=== PATIENT | male | born 1955 ===

== ENCOUNTER 2024-05-12 07:08 | Inpatient (IN) | payer OTHER, MEDICARE, SELFPAY ==
[2024-04-17 12:36] VITALS: BMI 29.8
[2024-04-17 14:26] LABS: Hematocrit 43.3 % (39.0-52.0); Hemoglobin 15.2 g/dL (13.0-18.0); Mean Corp Hgb Conc. 35.1 g/dL (33.0-37.0); Mean Corpuscular Hgb 29.3 pg (27.0-31.0); Mean Corpuscular Volume 83.4 fL (80.0-94.0); Mean Platelet Volume 9.8 fL (7.4-10.4); Platelet Count 198 10^3/uL (130-400); Red Blood Cell Count 5.19 10^6/uL (4.70-6.10); Red Cell Dist. Width 11.9 % (11.5-14.5); White Blood Cell Count 6.4 10^3/uL (4.8-10.8)
[2024-04-17 14:45] LABS: ALT (SGPT) 20 U/L (0-50); AST (SGOT) 28 U/L (17-59); Albumin 4.4 g/dl (3.5-5.0); Alkaline Phosphatase 61 U/L (38-126); Blood Urea Nitrogen 13 mg/dl (9-20); Calcium 9.5 mg/dl (8.4-10.2); Carbon Dioxide 27 mmol/L (22-30); Chloride 101 mmol/L (98-107); Estimated Creatinine Clearance 86 ml/min; Glucose 74 mg/dl (70-99); Potassium 4.3 mmol/L (3.5-5.1); Sodium 143 mmol/L (135-145); Total Bilirubin 0.5 mg/dl (0.2-1.3); Total Protein 7.2 g/dl (6.3-8.2); eGFR > 60.00
[2024-04-18 10:06] LABS: Glycohemoglobin (HgbA1c) 5.4 % (4.0-5.6)
--- NOTE | 2024-04-28 10:40 | VNURNOTE ---
Patient is scheduled for an elective R TKA on 05/12/24- he is a same day patient with Dr Valdez. Spoke with patient prior to surgery. Introduced role of [facility] Liaison. Patient reports that he lives with his in a split level home.
There are 2 steps to enter. There are 5 steps to a landing and 8 steps to the second floor.
There is a powder room on the entry engineer. He currently functions independently. He has a rolling walker and will obtain a cane.
PCP is Dr Jan Eric.
Discussed [facility] joint protocol and post surgical plans. Patient mentioned there is a possibility he may stay overnight.
Reviewed that if patient DC's same day, he will have VN services initially and will then start outpatient PT.
Patient selects VN for his home care needs and will go to [facility] for outpatient PT. Scheduled for 05/19.
Patient is in agreement with plan and states that his and daughter will be home with him. Advised to bring RW with him day of surgery. Referral placed in [facility].
Plan: [facility] per [facility] joint protocol then outpt PT on 05/19
[2024-05-06 10:57] VITALS: BMI 29.8
[2024-05-12] VITALS (14 sets, daily range): BP systolic 99–173; BP diastolic 60–89; PULSE 74; O2SAT 96–99
[2024-05-12] MEDS: TYLENOL 650 MG PO ×4 (07:34→23:31)
[2024-05-12] MEDS: CELEBREX 200 MG PO (07:34)
[2024-05-12] MEDS: ROXICODONE 5 MG PO ×2 (12:39→20:40)
[2024-05-12] MEDS: TYLENOL PO (12:51)
[2024-05-12] MEDS: COZAAR PO (13:10)
[2024-05-12] MEDS: NORMOSOL-R/PLASMALYTE-A 1000 IV (13:15)
--- NOTE | 2024-05-12 13:29 | PTCARENOTE ---
Patient received from PACU in bed; Right knee primaseal with scant amount of drainage present; Patient reports mild loss of sensation to bilateral lower extremities; Bilateral pedal pulses +2 to palpation; Patient is presently able to wiggle toes;
Patient states pain is mild but tolerable; Patient denies nausea/vomiting at this time; Patient oriented to room and unit; Call long within reach; Bed in lowest position, wheels locked; Assessment ongoing
[2024-05-12] MEDS: PROTONIX 40 MG PO (13:36)
[2024-05-12] MEDS: LIPITOR 10 MG PO (13:36)
[2024-05-12] MEDS: VITAMIN D3 (cholecalciferol) 50 MCG PO (13:36)
--- NOTE | 2024-05-12 14:15 | W.PN.UPDATE ---
Update Note
Progress Note Update
Went to evaluate patient in his room; however, he was working w/ OT at the time.
R knee OA s/p R TKA w/ Dr Valdez 05/12/24
DVT prophylaxis - ASA, b/l venous foot pumps
HTN - + parameters - monitor BP
AAA (small), stable on serial imaging
PVD w/ LLE claudication
- Continue ASA but at 325 mg daily dosing x4 weeks for blood clot prevention
GERD - continue PPI therapy
HLD
History of tobacco abuse
[2024-05-12] MEDS: ANCEF 5 IV (17:02)
[2024-05-12] MEDS: ASPIRIN 325 MG PO (17:02)
[2024-05-12] MEDS: DECADRON 4 MG PO (20:41)
[2024-05-12] MEDS: COLACE 100 MG PO (20:41)
[2024-05-12] MEDS: SENOKOT 17.2 MG PO (20:42)
[2024-05-12] MEDS: BACTROBAN 2% OINTMENT 1 APPLIC NASAL (21:32)
[2024-05-13] MEDS: ANCEF 5 IV (02:43)
[2024-05-13 03:00] VITALS: BP 139/77
[2024-05-13] MEDS: TYLENOL 650 MG PO ×3 (03:02→11:32)
[2024-05-13] MEDS: ROXICODONE 10 MG PO ×2 (06:01→10:05)
[2024-05-13] MEDS: CELEBREX 200 MG PO (07:25)
[2024-05-13] MEDS: DECADRON 4 MG PO (07:26)
[2024-05-13] MEDS: LIPITOR 10 MG PO (07:26)
[2024-05-13] MEDS: PROTONIX 40 MG PO (07:26)
[2024-05-13] MEDS: COLACE 100 MG PO (07:26)
[2024-05-13] MEDS: VITAMIN D3 (cholecalciferol) 50 MCG PO (07:26)
[2024-05-13] MEDS: COZAAR 25 MG PO (07:26)
[2024-05-13] MEDS: BACTROBAN 2% OINTMENT 1 APPLIC NASAL (07:26)
[2024-05-13] MEDS: ASPIRIN 325 MG PO (07:26)
[2024-05-13] MEDS: SENOKOT 17.2 MG PO (07:26)
[2024-05-13 07:30] VITALS: BP 149/90
--- NOTE | 2024-05-13 08:46 | W.PN.ORTHO ---
Today's Communication / Plan
-
Await PT and OT recs.
D/c later today if remaining clinically stable.
Assessment
.
Distal Motor Intact: Yes
Dressing:
Scant areas of old bleeding along incision line.
Assessment:
R knee OA s/p R TKA w/ Dr Valdez 05/12/24
DVT prophylaxis - ASA, b/l venous foot pumps
HTN - + parameters - BPs overall stable
AAA (small), stable on serial imaging
PVD w/ LLE claudication
- Continue ASA but at 325 mg daily dosing x4 weeks for blood clot prevention
GERD - continue PPI therapy
HLD
History of tobacco abuse
Plan
.
Surgery / Date: R TKA w/ Dr Valdez 05/12/24
DVT Prophylaxis: Aspirin
Activity:
Out of bed.
PT/OT
Discharge Plan: Home w/ Outpatient PT
Subjective
.
.:
Patient resting comfortably in his chair.
R knee pain overall well tolerated w/ current pain meds.
Denies any new significant complaints.
Eager for potential d/c today.
Vital Signs and Labs
.
Vital Signs and Labs:
Lab Results
04/17/24 12:20
04/17/24 12:20
Temp Pulse Resp BP Pulse Ox
97.9 F 94 18 149/90 96
05/13/24 07:30 05/13/24 07:30 05/13/24 07:30 05/13/24 07:30 05/13/24 07:30
Non-invasive Hgb result: 13.8
Physical Exam
-
HEENT: No pallor, cyanosis, or jaundice. Throat clear.
NECK: Supple. No JVD.
RESPIRATORY: Lungs clear to auscultation.
CVS: S1, S2 normal. RRR.�
ABDOMEN: Soft, non-tender. No distension.
EXTREMITIES: Strength equal, no calf pain with palpation/dorsiflexion. Calves soft.
TRIM INSTALLER: AOx3. No focal deficits. feller operator grossly intact
--- NOTE | 2024-05-13 09:00 | W.DS.TRANS ---
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
-
Discharge Instructions:
Sleep Apnea Risk Intermediate
Discharge Diagnosis/Procedures R knee OA s/p R TKA w/ Dr Valdez 05/12/24
Diet Regular
Activity As tolerated,With Walker
Driving Restrictions Not until seen by your Dr
Bathing Restrictions OK to Shower
Other Services PT
Wound Care Dressing to be removed 1 week post-surgery.
Instructions:
Stand-Alone Forms: Total Hip/Knee Replacement D/C
Changes to Home Medications: Yes
Discharge Medications:
DC Medications w/original date entered in [employer]
ascorbic acid (vitamin C) 500 mg chewable tablet (Vitamin C) 500 mg PO DAILY Supplement 05/06/24
cholecalciferol (vitamin D3) 50 mcg (2,000 unit) tablet (Vitamin D3) 50 mcg PO DAILY Supplement 05/06/24
omeprazole 40 mg capsule,delayed release 40 mg PO DAILY Gastrointestinal Issue 05/06/24
pitavastatin calcium 2 mg tablet 2 mg PO DAILY High Cholesterol 05/06/24
mupirocin 2 % topical ointment 1 applic topical BID 05/12/24
acetaminophen 325 mg tablet 650 mg (2 x 325 mg) PO Q4HWA #60 tabs 05/13/24
aspirin 325 mg tablet 325 mg PO DAILY #30 tabs 05/13/24
celecoxib 100 mg capsule (Celebrex) 100 mg PO BID #30 caps 05/13/24
dexamethasone 4 mg tablet 4 mg PO Q12H Anti-inflammatory #7 tabs 05/13/24
docusate sodium 100 mg capsule 100 mg PO BID #30 caps 05/13/24
losartan 25 mg tablet 25 mg PO DAILY Blood Pressure #1 tab 05/13/24
ondansetron HCl 4 mg tablet 4 mg PO Q6H PRN nausea and vomiting #30 tabs 05/13/24
oxycodone 5 mg tablet 5 - 10 mg (1 - 2 x 5 mg) PO Q6H PRN moderate-severe pain #30 tabs 05/13/24
sennosides 8.6 mg tablet (Senna Laxative) 17.2 mg (2 x 8.6 mg) PO BID #30 tabs 05/13/24
Home Medication Changes
acetaminophen 325 mg tablet 650 mg (2 x 325 mg) PO Q4HWA #60 tabs 05/13/24
aspirin 325 mg tablet 325 mg PO DAILY #30 tabs 05/13/24
celecoxib 100 mg capsule (Celebrex) 100 mg PO BID #30 caps 05/13/24
dexamethasone 4 mg tablet 4 mg PO Q12H Anti-inflammatory #7 tabs 05/13/24
docusate sodium 100 mg capsule 100 mg PO BID #30 caps 05/13/24
ondansetron HCl 4 mg tablet 4 mg PO Q6H PRN nausea and vomiting #30 tabs 05/13/24
oxycodone 5 mg tablet 5 - 10 mg (1 - 2 x 5 mg) PO Q6H PRN moderate-severe pain #30 tabs 05/13/24
sennosides 8.6 mg tablet (Senna Laxative) 17.2 mg (2 x 8.6 mg) PO BID #30 tabs 05/13/24
Pending Results: No
--- NOTE | 2024-05-13 09:52 | CM ---
Reviewed the chart notes and spoke with the patient's daughter at the bedside while OT was working with the patient. The patient resides with his spouse in a split level home with two steps to enter. The patient has a cane and rolling walker in
the home. The patient has not had VN or been to a SNF. The patient did confirmed his pharmacy of choice is the [facility] [address] [facility]. The patient has outpatient PT/OT scheduled for tomorrow. The patient's daughter will
provide transportation home today. Spouse will provide transportation to and from outpatient PT. CM continues to be available to patient/family and is monitoring medical plan for needs at discharge.
Plan: Discharge to home today. No additional needs identified.
[2024-05-13 09:54] VITALS: BP 128/73; PULSE 86; O2SAT 95
[2024-05-13 10:45] VITALS: BP 144/76
[2024-05-13 11:35] VITALS: BP 142/82; PULSE 80; O2SAT 96
== END 2024-05-13 12:17 | disposition home or self-care (01) | DRG 470 ==
LOC: 2 SOUTH 07:08
PROVIDERS: ADMITTING PHYSICIAN Specialist; FAMILY PHYSICIAN Family Medicine; REFERRING PHYSICIAN Internal Medicine Interventional Cardiology
PROC: 0SRC0J9 Replacement of Right Knee Joint with Synthetic Substitute, Cemented, Open Approach (ICD-10-PCS; 2024-05-12)
DX: M17.11 Unilateral primary osteoarthritis, right knee (principal); I71.40 Abdominal aortic aneurysm, without rupture, unspecified; I73.9 Peripheral vascular disease, unspecified; K21.9 Gastro-esophageal reflux disease without esophagitis; E78.5 Hyperlipidemia, unspecified; I10 Essential (primary) hypertension; Z79.82 Long term (current) use of aspirin; Z87.891 Personal history of nicotine dependence; Z80.0 Family history of malignant neoplasm of digestive organs
CPT/HCPCS: 36415; 73560; 80053; 83036; 85027; 87070; 97110; 97116; 97163; 97166; 97530; 97535; C1713; C1776

== ENCOUNTER → 2025-02-02 10:36 | Outpatient (REF) | payer OTHER, MEDICARE, SELFPAY | LOC: HWRCS 10:36 | PROVIDERS: ATTENDING PHYSICIAN Internal Medicine Interventional Cardiology; FAMILY PHYSICIAN Family Medicine | DX: I10 Essential (primary) hypertension (principal) | CPT/HCPCS: 93306 ==